=== PATIENT | female | born 1950 | race Caucasian/White ===

== ENCOUNTER 2024-02-13 14:27 | Outpatient (CLI) | payer MEDICARE, SELFPAY ==
--- NOTE | ~2024-02-13 | MM_ITS ---
EXAMINATION: MM screening janay BI w dougie HISTORY: Screening TECHNIQUE: Craniocaudal and mediolateral oblique 3-D tomosynthesis images were obtained and synthetic 2-D images were generated. CAD analysis was submitted and interpreted. COMPARISON: No prior mammogram is available for comparison at this institution. BREAST PARENCHYMAL COMPOSITION: Not dense: There are scattered areas of fibroglandular density. FINDINGS: There is no evidence of suspicious mass, calcification, or architectural distortion to sugg est malignancy in either breast. There has been no suspicious interval change. IMPRESSION: 1. No mammographic evidence of malignancy. 2. Recommend routine screening mammography in one year. BI-RADS Category 1: Negative Reviewed, dictated and finalized at location B.
== END 2024-02-13 14:28 | disposition home or self-care (01) ==
PROVIDERS: PCP Nurse Practitioner Family; Visit Provider Nurse Practitioner Family
DX: Z12.31 Encounter for screening mammogram for malignant neoplasm of breast (principal)
CPT/HCPCS: 77063; 77067

== ENCOUNTER 2025-01-16 11:00 | Outpatient (RCR) | payer MEDICARE, SELFPAY ==
--- NOTE | 2024-11-01 17:19 | OTOPEVAL1 ---
Assessment and note entered by Kristine Marti OT Evaluation Information Assessment Status Evaluation Diagnosis Lymphedema ICD-10 Condition Codes (OT) Lymphedema I89.0 Onset 2022 Subjective Information Pt. presents on this date with her niece, Marguerite ( health care power of litigation attorney associate) and friend, Brandi, who will be giving pt. rides to treatment. Pt. lives in [facility] facility. Niece reports pt. had biopsy on the inside of her right ankle in 2022, after this pt.'s R LE began to swell, with eventual B LE swelling. Biopsy resulted in slow healing wound. Reported Pain Level Pain Score 0: Self Report Assessment OT Clinical Summary Pt. is 74 year old F, presents with BLE lymphedema R > L, symptomatic of Stage 2 lymphedema, displaying firm swelling in feet, ankles, and upper legs with history of slow healing, R LE wound, hysterectomy, and dementia. Pt. will benefit from complete decongestive treatment including manual lymph drainage training, therapeutic exercises, use of vasopneumatic pump, and measurement, fitting, and education for purchase and wear of compression garment. Pt. will likely have difficulty with tolerating wear of short stretch compression bandaging due to memory deficits and memory care living environment, which may compromise safety and mobility, so I have advised caregiver against this portion of treatment. Plan of Care Interventions Therapeutic Exercise,Manual Therapy,Therapeutic Activities,Other Other Interventions vasopneumatic compression pump OT Services Indicated Yes Treatment Frequency and 2x/wk for 8 treatments Duration These treatments will address the objective and functional deficits as defined above. The patient will be advanced safely and appropriately in order for the patient to progress towards his/her prior level of function. Additional exercises will be introduced and as well as a comprehensive home exercise program upon discharge, if needed, ?to ensure carryover of functional gains achieved in the clinic. This treatment plan has been reviewed and agreement upon by the patient.
--- NOTE | 2024-11-01 17:19 | OPREHPOC ---
Outpatient Therapy Plan of Care This is a Multidisciplinary Plan of Care that may contain components documented by all disciplines (PT, OT, and ST.) OT Problem 1 OT Problem #1 Knowledge Deficit OT Goal 1 Goal / Goal Update 1) Pt. will demonstrate return demonstration of HEP with cues 2) Pt. and caregivers will verbalize understanding of tasks and treatment required for long-term management of condition Target Visit 16 OT Problem 2 OT Problem #2 Impaired Lymphatic System OT Goal 1 Goal / Goal Update 1) Pt. will display volume reduction of 30 cm in BLE 2) Pt. and caregivers will demonstrate ability to doff/don compression garments and confirm knowledge of compression garment wear schedule Target Visit 16
--- NOTE | 2024-11-04 12:20 | PCOTNOTE ---
Called Katerin at [facility], where pt. lives in memory care to coordinate care regarding recommended compression garments and in home program for condition management, while addressing facilities limitations for support.
--- NOTE | 2024-12-25 11:34 | WNDPHOTO ---
PHOTO ONLY - See Nursing Notes and/ or assessments for documentation.
--- NOTE | 2024-12-25 11:35 | WNDPHOTO ---
PHOTO ONLY - See Nursing Notes and/ or assessments for documentation.
--- NOTE | 2024-12-25 11:35 | WNDPHOTO ---
PHOTO ONLY - See Nursing Notes and/ or assessments for documentation.
--- NOTE | 2025-01-01 16:14 | OTOPPROG ---
Assessment and note entered by Kristine Marti OT Evaluation Information Assessment Status Progress Diagnosis Lymphedema ICD-10 Condition Codes (OT) Lymphedema I89.0 Onset 2022 Subjective Information Pt. presents on this date with her care provider Brandi, who will be giving pt. rides to treatment. Pt. lives in Memory [facility] facility. Pt. is agreeable to treatment. Assessment OT Clinical Summary Pt. is 74 year old F, presents progress evaluation with BLE lymphedema R > L, symptomatic of Stage 2 lymphedema, displaying continued firm swelling in feet, ankles, and upper legs with history of slow healing, R LE wound, hysterectomy, and dementia. Pt. demonstrates consistent participation in in clinic treatment, while awaiting confirmation from care provider to coordinate care plan in memory care facility. Pt. will benefit will benefit from complete decongestive treatment including manual lymph drainage training, therapeutic exercises, use of vasopneumatic pump, and measurement, fitting, and education for purchase and wear of compression garment. Pt. will likely have difficulty with tolerating wear of short stretch compression bandaging due to memory deficits and memory care living environment, which may compromise safety and mobility, so I have advised caregiver against this portion of treatment. Plan of Care Interventions Therapeutic Exercise,Manual Therapy,Therapeutic Activities,Other Other Interventions vasopneumatic compression pump OT Services Indicated Yes Treatment Frequency and 2x/wk for 10 treatments Duration These treatments will address the objective and functional deficits as defined above. The patient will be advanced safely and appropriately in order for the patient to progress towards his/her prior level of function. Additional exercises will be introduced and as well as a comprehensive home exercise program upon discharge, if needed, ?to ensure carryover of functional gains achieved in the clinic. This treatment plan has been reviewed and agreement upon by the patient.
--- NOTE | 2025-01-01 16:15 | OPREHPOC ---
Outpatient Therapy Plan of Care This is a Multidisciplinary Plan of Care that may contain components documented by all disciplines (PT, OT, and ST.) OT Problem 1 OT Problem #1 Knowledge Deficit OT Goal 1 Goal / Goal Update 1) Pt. will demonstrate return demonstration of HEP with cues 2) Pt. and caregivers will verbalize understanding of tasks and treatment required for long-term management of condition 01/01/25 Progress 1) Goal not met, continue with goal 2) Goal not met, continue with goal Target Visit 16 Progress Not Met OT Problem 2 OT Problem #2 Impaired Lymphatic System OT Goal 1 Goal / Goal Update 1) Pt. will display volume reduction of 30 cm in BLE 2) Pt. and caregivers will demonstrate ability to doff/don compression garments and confirm knowledge of compression garment wear schedule 01/01/25 Progress 1) Goal not met, continue with goal 2) Goal not met, continue with goal Target Visit 16 Progress Not Met
--- NOTE | 2025-01-21 09:43 | PCOTNOTE ---
Pt. scheduled for 9:30 appointment, but due to transportation conflicts caregiver canceled appointment just before start of appointment
--- NOTE | 2025-02-04 11:27 | PCOTNOTE ---
This treatment is being continued on visit number [id number]. Please see documentation on both accounts to view progress. Completed interventions, outcomes, and problems have been marked as Inactive to facilitate the copying of the Care plan routine for recurring accounts.
== END 2025-01-30 23:59 | disposition home or self-care (01) ==
LOC: ANHOT 11:00
PROVIDERS: PCP Nurse Practitioner Family; Visit Provider Nurse Practitioner Family
DX: I89.0 Lymphedema, not elsewhere classified (principal)
CPT/HCPCS: 97016; 97110; 97140; 97166; 97535

== ENCOUNTER 2025-02-25 10:00 | Outpatient (RCR) | payer MEDICARE, SELFPAY ==
--- NOTE | 2025-02-04 10:51 | PCOTNOTE ---
The treatment documented on this account is a continuation of the treatment documented on visit number 12, from [id number]. Please see documentation on both accounts to view progress. The Plan of Care has been transitioned and updated within the new [id number]. I have addressed and agree with the discipline specific Problems, Interventions, and Goals for the current certification period. Completed interventions, outcomes, and problems have been marked as Inactive to facilitate the copying of the Care plan routine for recurring accounts.
--- NOTE | 2025-02-12 10:11 | PCOTNOTE ---
Called Pt.'s referring provider RE: fax to sign for order allowing pt.'s home facility, [facility] to appropriately manage pt.'s compression garment donning/doffing and wear schedule. Did not speak with provider, but office helper clerical reports that order will be signed and faxed to pt.'s facility and to [facility].
--- NOTE | 2025-02-25 17:57 | OTOPDC ---
Assessment and note entered by Kristine Marti OT Evaluation Information Assessment Status Discharge Diagnosis Lymphedema ICD-10 Condition Codes (OT) Lymphedema I89.0 Onset 2022 Subjective Information Pt. has repeatedly stated during treatments My mom and dad both wore compression stockings. I think this is genetic. Reported Pain Level Pain Score 0: Self Report Additional Pain Score Comments Pt. reports soreness in toes from new shoes Assessment OT Clinical Summary Pt. is 74 year old F, presents with BLE lymphedema R > L, symptomatic of Stage 2 lymphedema, displaying firm, but softening swelling in feet, ankles, and upper legs with history of slow healing, R LE wound, hysterectomy, and dementia. Pt. demonstrated consistent participation in in clinic treatment with assistance from caregivers and communication with [facility] care facility staff. Attempted use of velcro compression garments for volume reduction and ease of management, but was unsuccessful in coordinating wear and fit with staff at pt.'s facility. Pt. was fit for and issued appropriate below knee compression stocking with side zipper to be worn daily and managed by care facility staff, which has been shown to be more consistently followed. Pt. and primary caregiver educated on treatment options, pt. tolerating manual lymph drainage routine and use of vasoneumatic compression pump in-clinic, which displayed benefits during treatment, but due to limitations of caregiver support and staff at [facility] care facility, maintenance was inconsistent and caregiver declined approval for home use compression pump and capacity for additional support of maintenance phase of treatment. Due to pt.'s limitations ,additional in clinic treatment will likely not benefit improvement in long-term management of lymphedema, so pt. will discharge on this date, with pt. and caregivers in agreement. Plan of Care OT Services Indicated No
== END 2025-02-26 14:30 | disposition home or self-care (01) ==
LOC: ANHOT 10:00
PROVIDERS: PCP Nurse Practitioner Family; Visit Provider Nurse Practitioner Family
DX: I89.0 Lymphedema, not elsewhere classified (principal)
CPT/HCPCS: 97016; 97140; 97530; 97535